=== PATIENT | male | born 1965 | race Two or more races ===

== ENCOUNTER 2023-08-16 14:09 | Emergency (ER) | payer MEDICAID ==
[~2023-08-16] VITALS: Ht 167.6 cm; Wt 79.8 kg
[2023-08-16] MEDS: MECLIZINE HCL 25 MG TABLET PO ONE (15:00)
[2023-08-16] MEDS: IV NS 0.9% 1,000 ML BAG IV ONE (15:00)
[2023-08-16] MEDS: diphenhydrAMINE HCL 50 MG/ML VIAL IV ONE (15:00)
[2023-08-16] MEDS: SUMATRIPTAN SUCCINATE 6 MG/0.5 ML VIAL SQ ONE (15:00)
[2023-08-16] MEDS: METOCLOPRAMIDE HCL 10 MG/2 ML VIAL IV ONE (15:00)
[2023-08-16] MEDS ORDERED: MECLIZINE HCL 25 MG TABLET ONE (15:03)
[2023-08-16] MEDS ORDERED: diphenhydrAMINE HCL 50 MG/ML VIAL ONE (15:03)
[2023-08-16] MEDS ORDERED: SUMATRIPTAN SUCCINATE 6 MG/0.5 ML VIAL SQ ONE (15:03)
[2023-08-16] MEDS ORDERED: METOCLOPRAMIDE HCL 10 MG/2 ML VIAL ONE (15:04)
[2023-08-16 15:07] LABS: BASOPHILS % (AUTO) 0.4 % (0.0-2.0); EOSINOPHILS # (AUTO) 0.4 K/uL (0.0-0.7); EOSINOPHILS % (AUTO) 6.5 % (0.0-6.0); HEMATOCRIT 45 % (39-51); LYMPHOCYTES # (AUTO) 2.1 K/uL (0.8-4.8); MEAN CORPUSCULAR HEMOGLOBIN 31 PG (26.0-33.0); MEAN CORPUSCULAR HGB CONC 34 g/dl (31.0-36.0); MEAN CORPUSCULAR VOLUME 93 fL (80-96); MONOCYTES # (AUTO) 0.5 K/uL (0.1-1.30); MONOCYTES % (AUTO) 7.9 % (2.0-12.0); NEUTROPHILS # (AUTO) 3.4 K/uL (1.8-8.9); NEUTROPHILS % (AUTO) 52.2 % (43.0-81.0); PLATELET COUNT (AUTO) 218 K/uL (150-450); RED BLOOD CELL COUNT(AUTO) 4.81 MIL/uL (4.5-6.0); RED CELL DISTRIBUTION WIDTH 14.5 % (11.5-15.0); WHITE BLOOD COUNT (AUTO) 6.4 K/uL (4.3-11.0)
[2023-08-16 15:17] LABS: CALCIUM, SERUM 9.1 mg/dL (8.5-10.1); CARBON DIOXIDE 25 mmol/L (21-32); CHLORIDE 107 mmol/L (98-107); CREATININE 0.7 mg/dL (0.6-1.3); GLUCOSE 117 mg/dL (74-106); POTASSIUM 3.7 mmol/L (3.5-5.1); SODIUM SERUM 143 mmol/L (136-145); UREA NITROGEN, BLOOD 23 mg/dL (7-18)
[2023-08-16 15:23] LABS: ALANINE AMINOTRANSFERASE 37 U/L (12-78); ALBUMIN 3.1 g/dL (3.4-5.0); ALKALINE PHOSPHATASE 90 U/L (46-116); ASPARTATE AMINOTRANSFERASE 28 U/L (15-37); BILIRUBIN,DIRECT 0.2 mg/dL (0.0-0.2); BILIRUBIN,TOTAL 0.7 mg/dL (0.2-1.0); TOTAL PROTEIN, SERUM 6.8 g/dL (6.4-8.2)
[2023-08-16] MEDS ORDERED: IOHEXOL-350 100 ML VIAL IV ONE (15:45)
[2023-08-16] MEDS ORDERED: IV NS 0.9% 250 ML IV ONE (15:45)
[2023-08-16] MEDS ORDERED: METO-295 PO (17:19)
[2023-08-16] MEDS ORDERED: SUMA100T PO (17:19)
[2023-08-16 18:58] VITALS: BP 128/78; TEMP 98.2; O2SAT 100
== END 2023-08-16 18:59 | disposition home or self-care (01) ==
LOC: ER 14:30
DX: Q28.2 Arteriovenous malformation of cerebral vessels (principal); E78.5 Hyperlipidemia, unspecified; R11.0 Nausea; R42 Dizziness and giddiness
CPT/HCPCS: 99285; 70498; 96374; 96361; 96375; 93005; 70496; 85025; 80048; 80076; 36415; 84484; 83880; 96372; J8597; J1200; J3030; J2765; J7030; J7050; Q9967